=== PATIENT | male | born 1990 | race Asian ===

== ENCOUNTER 2024-09-03 18:40 | Emergency (ER) | payer MEDICAID, OTHER ==
[~2024-09-03] VITALS: Ht 177.8 cm; Wt 92.2 kg
[2024-09-03] MEDS: LORAZEPAM 2 MG/1 ML VIAL IV ONE (00:15)
[2024-09-03] MEDS ORDERED: MELA5TAB20 PO (18:53)
[2024-09-03 19:26] LABS: BASOPHILS % (AUTO) 0.4 % (0.0-2.0); EOSINOPHILS # (AUTO) 0.2 K/uL (0.0-0.7); EOSINOPHILS % (AUTO) 3.4 % (0.0-7.0); HEMOGLOBIN 14.1 g/dL (12.5-16.3); LYMPHOCYTES # (AUTO) 1.4 K/uL (0.8-4.8); LYMPHOCYTES % (AUTO) 26.7 % (20.5-51.5); MEAN CORPUSCULAR HEMOGLOBIN 31.3 uug (23.8-33.4); MEAN CORPUSCULAR HGB CONC 34 g/dL (32.5-36.3); MONOCYTES # (AUTO) 0.4 K/uL (0.1-1.30); NEUTROPHILS # (AUTO) 3.2 K/uL (1.8-8.9); NEUTROPHILS % (AUTO) 62.5 % (38.5-71.5); PLATELET COUNT (AUTO) 188 K/uL (152-348); RED BLOOD CELL COUNT(AUTO) 4.51 MIL/uL (4.06-5.63); RED CELL DISTRIBUTION WIDTH 12.9 % (12.1-16.2); WHITE BLOOD COUNT (AUTO) 5.1 K/uL (3.6-10.2)
[2024-09-03 19:31] LABS: DIFFERENTIAL COMMENT 1
[2024-09-03 19:34] LABS: CALCIUM 8.8 mg/dL (8.5-10.1); CREATININE 0.9 mg/dL (0.6-1.3); POTASSIUM 4.5 mmol/L (3.5-5.1)
[2024-09-03 19:39] LABS: CREATINE KINASE, TOTAL 103 U/L (39-308)
[2024-09-03 19:40] LABS: ALBUMIN 3.5 g/dL (3.4-5.0); BILIRUBIN,DIRECT 0.1 mg/dL (0.0-0.2); BILIRUBIN,TOTAL 0.4 mg/dL (0.2-1.0); TOTAL PROTEIN, SERUM 6.8 g/dL (6.4-8.2)
[2024-09-03 19:44] LABS: ETHANOL < 3 MG/DL (0-10)
[2024-09-03] MEDS ORDERED: CYAN250014 PO (20:15)
[2024-09-03] MEDS ORDERED: ACET-2030 PO (20:15)
[2024-09-03] MEDS ORDERED: MELA1TAB27 PO (20:15)
[2024-09-03] MEDS: IV NS 1000 ML 1,000 ML IV ONE (21:00)
[2024-09-03 21:01] LABS: *AMPHETAMINE, URINE NEGATIVE (NEGATIVE); *BARBITURATE, URINE NEGATIVE (NEGATIVE); *BENZODIAZEPINE, URINE NEGATIVE (NEGATIVE); *CANNABINOID, URINE NEGATIVE (NEGATIVE); *COCCAINE, URINE NEGATIVE (NEGATIVE); *OPIATE, URINE NEGATIVE (NEGATIVE); *PHENCYCLIDINE SCREEN,URINE NEGATIVE (NEGATIVE); FENTANYL, URINE NEGATIVE (NEGATIVE)
[2024-09-04] MEDS ORDERED: LORAZEPAM 2 MG/1 ML VIAL ONE (00:22)
[2024-09-04 07:41] VITALS: BP 111/81; O2SAT 100
== END 2024-09-04 07:42 | disposition home or self-care (01) ==
LOC: ER 18:40
DX: G40.409 Other generalized epilepsy and epileptic syndromes, not intractable, without status epilepticus (principal); R53.1 Weakness; F41.9 Anxiety disorder, unspecified; R07.89 Other chest pain; R51.9 Headache, unspecified; Z79.899 Other long term (current) drug therapy; Z88.1 Allergy status to other antibiotic agents; Z88.6 Allergy status to analgesic agent; Z88.8 Allergy status to other drugs, medicaments and biological substances
CPT/HCPCS: 80076; 80048; 82550; 85025; 84484; 36415; 70450; 93005; 99285; 96361; 96374; 83605; 80320; 80307; J7040; J2060; A4606; A4663; G0480